=== PATIENT | female | born 1960 | race Caucasian/White ===

== ENCOUNTER 2017-01-01 09:30 | Day surgery (SDC) | payer OTHER ==
[2016-12-31 16:16] VITALS: BMI 29.5
[2017-01-01] VITALS (12 sets, daily range): BP systolic 113–175; BP diastolic 61–90; PULSE 64–88; RESP 10–19; Ht 154.9 cm; Wt 68.3 kg
[~2017-01-01] VITALS: Ht 154.9 cm; Wt 68.3 kg
[~2017-01-01 09:30] MED LIST: CEFAZOLIN 2 GM/50 ML (PMX) 50 ML IVPB ONE; CIPR500T4 PO; HYDR-906 PO; IBUP-1542 PO; METO10TA96 PO
[2017-01-01] MEDS ORDERED: LACTATED RINGER'S 1,000 ML IV* SCH (10:00)
[2017-01-01] MEDS ORDERED: CEFAZOLIN 2 GM/50 ML (PMX) 50 ML IVPB ONE (10:00)
[2017-01-01] MEDS ORDERED: LOSA25TA5 PO (10:16)
--- NOTE | 2017-01-01 11:55 | HPN ---
Date/Time of Note Date/Time of Note DATE: 01/01/17 TIME: 11:55 Interval H&P Admission Note Pt. seen H&P reviewed: No system changes ROLF FOWLER MD Jan 01, 2017 11:55
[2017-01-01] MEDS ORDERED: EPINEPHrine 1 MG/ML 30 ML INJ ONE (12:16)
[2017-01-01] MEDS ORDERED: LIDOCAINE 2%/EPI 30 ML INJ ONE (12:25)
[2017-01-01] MEDS ORDERED: traMADol 50 MG TAB PO PRN (12:30)
[2017-01-01] MEDS ORDERED: morphine 2 MG INJ IV PRN (12:30)
[2017-01-01] MEDS ORDERED: ONDANSETRON 4 MG INJ IV PRN ×2 (12:30→13:30)
[2017-01-01] MEDS ORDERED: PROPOFOL 20 ML ONE (12:41)
[2017-01-01] MEDS ORDERED: FENTAnyl 50 MCG/ML VIAL ONE (12:41)
[2017-01-01] MEDS ORDERED: LIDOCAINE 2% (SDV) 5 ML INJ ONE (12:41)
[2017-01-01] MEDS ORDERED: MIDAZOLAM 1 MG/ML 2 ML INJ ONE (12:41)
[2017-01-01] MEDS ORDERED: CEFAZOLIN 1 GM INJ ONE (13:01)
[2017-01-01] MEDS ORDERED: ONDANSETRON 4 MG INJ ONE (13:03)
[2017-01-01] MEDS ORDERED: DEXAMETHASONE 4 MG/ML 1 ML INJ ONE (13:03)
[2017-01-01] MEDS ORDERED: OXYCODONE/ACETAMINOPHEN (5/325) TAB PO PRN (13:30)
[2017-01-01] MEDS ORDERED: HYDROmorphONE (0.2 MG/ML) 10ML SYG IV PRN (13:30)
[2017-01-01] MEDS ORDERED: DIPHENHYDRAMINE 50 MG INJ IV PRN (13:30)
[2017-01-01] MEDS ORDERED: MEPERIDINE 25 MG INJ IV PRN (13:30)
[2017-01-01] MEDS ORDERED: PROCHLORPERAZINE 10 MG INJ IV PRN (13:30)
[2017-01-01] MEDS ORDERED: FENTAnyl 50 MCG/ML VIAL IV PRN (13:30)
[2017-01-01] MEDS ORDERED: HYDROmorphONE 2 MG/ML SYG ONE (13:44)
--- NOTE | 2017-01-01 14:28 | OPR ---
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 She currently has a ruptured implant present in the left breast but we will leave this in place as it is keeping the pocket open. Our plan today is to excise excess skin and the reconstructed nipple, and to fat graft the left breast to improve the overall quality of the tissue. The risks, benefits, alternatives of performing this procedure were discussed with the patient including the risks of bleeding, infection, wound healing problems, need for additional procedures, partial or total fat graft loss, and the patient states that she understands these risks and would like to proceed with the procedure. All questions were answered, no guarantees were given with regards to the outcome of this procedure. Description of procedure: The patient was brought to the operating room at [facility] where general anesthesia was induced and the patient was prepped and draped in usual sterile fashion. A total of 800 cc of tumescent solution containing 1 L of lactated Ringer's and 1 amp of epinephrine and 25 cc of 2% lidocaine with 1: 200,000 epinephrine were injected into the incision site on the left breast and into the lower abdomen through 3 stab incisions using a tumescent cannula. After allowing adequate time to take effect, the fat was then harvested using the [place] cannula. It was allowed to decant on the back table and was processed on [employer] before loading back into syringes. The left nipple was then excised as an ellipse, and then was completely excised using electrocautery. Using a Tru[place]illo cannulas, the harvested fat was then injected into the left breast in multiple passes in small aliquots. A total of 60 cc of fat were reinjected. The incision was then closed with 3-0 Vicryl suture and 4-0 Monocryl suture. The patient tolerated procedure well, there were no complications, follow-up information and wound care instructions were given Anesthesia: ROLF Pedraza MD Jan 01, 2017 14:28
[2017-01-01] MEDS ORDERED: hydrALAzine 20 MG INJ IV PRN (14:30)
[2017-01-01] MEDS ORDERED: HYDROCODONE/APAP (10/325) TAB NGT PRN (14:30)
[2017-01-01] MEDS ORDERED: LABETALOL HCL 20MG INJ IV PRN (14:30)
== END 2017-01-01 16:10 | disposition home or self-care (01) ==
LOC: SDS 09:30
PROVIDERS: ATTEND Surgery Plastic and Reconstructive Surgery
DX: Z90.12 Acquired absence of left breast and nipple (principal); Z85.3 Personal history of malignant neoplasm of breast; I10 Essential (primary) hypertension
CPT/HCPCS: 19380; 88307; J0171; J0690; J1100; J1170; J2250; J2405; J3010; Z7512; Z7610